=== PATIENT | female | born 1995 | race Two or more races ===

== ENCOUNTER 2024-07-26 19:09 | Emergency (ER) | payer OTHER ==
[~2024-07-26] VITALS: Ht 188 cm; Wt 68.0 kg
[2024-07-26 19:31] VITALS: BP 97/65; O2SAT 100
[2024-07-26] MEDS ORDERED: FAMOTIDINE/PF 20 MG in 0.9 % SODIUM CHLORIDE 8 ML IV PUSH STA (19:49)
[2024-07-26] MEDS ORDERED: ONDANSETRON HCL 2 MG/ML VIAL IV ONE (20:00)
[2024-07-26] MEDS ORDERED: 0.9 % SODIUM CHLORIDE 1,000 ML IV SCH (20:00)
[2024-07-26 20:22] LABS: HEMATOCRIT 36.7 % (36.0-45.00); HEMOGLOBIN 12.8 g/dL (12.0-15.00); MEAN CELL VOLUME 92.3 fL (80.00-100.00); MEAN CORPUSCULAR HEMOGLOBIN 32.3 pg (27.00-32.0); PLATELET COUNT 224 K/uL (150-450); RED BLOOD COUNT 3.97 M/uL (4.00-6.00); RED CELL DISTRIBUTION WIDTH 12.2 % (11.5-14.5)
[2024-07-26 21:06] LABS: ALBUMIN 3.8 gm/dL (3.4-5.0); BILIRUBIN TOTAL 0.71 mg/dL (0.3-1.2); CALCIUM 9.1 mg/dL (8.5-10.1); CREATININE SERUM 0.84 mg/dL (0.55-1.02); GFR 79.08; GLOBULINA 4.2 G/DL (2.4-3.5); POTASSIUM 4.06 mEq/L (3.5-5.1)
[2024-07-26] MEDS ORDERED: SUCRALFATE 1 G TABLET PO ONE (21:30)
[2024-07-26] MEDS ORDERED: KETOROLAC TROMETHAMINE 30 MG VIAL IV ONE (21:30)
[2024-07-26] MEDS ORDERED: PEPCID AC20 MG PO (21:34)
[2024-07-26] MEDS ORDERED: ZOFRAN8 MG PO (21:34)
== END 2024-07-26 22:56 | disposition home or self-care (01) ==
LOC: ER 19:11
PROVIDERS: General Practice
DX: K29.70 Gastritis, unspecified, without bleeding (principal); Z91.013 Allergy to seafood